=== PATIENT | female | born 1960 | race Caucasian/White ===

== ENCOUNTER 2016-11-25 18:18 | Emergency (ER) | payer OTHER ==
[~2016-11-25] VITALS: Ht 167.6 cm; Wt 79.8 kg
[~2016-11-25 18:18] MED LIST: CIPRO500 MG PO; KEFLEX250 MG PO; MACROBID100 M1 PO; MOTRIN; MOTRIN800 MG PO; NORCO 5/325 MG1 TAB PO; ULTRAM50 MG PO
[2016-11-25 18:55] VITALS: BP 148/96
--- NOTE | 2016-11-25 19:50 | NUR ---
PT RETURN FROM XRAY TO LOBBY
--- NOTE | 2016-11-25 20:00 | NUR ---
PT TAKEN TO BED 4
--- NOTE | 2016-11-25 20:15 | NUR ---
56Y F PRESENTED TO ER C/O OF NON PRODUCTIVE COUGH AND SOB AT TIMES. NO DISTRESS NOTED. V/S TAKEN (SEE V/S). AFEBRILE. HX OF DM, HTN, ASTHMA.
--- NOTE | 2016-11-25 21:46 | NUR ---
Dr. Felix evaluating patient at bedside.
[2016-11-25] MEDS ORDERED: ALBUTEROL 0.083% 2.5 MG/3 ML NEBU INH ONE (21:50)
--- NOTE | 2016-11-25 21:55 | NUR ---
RT AT BEDSIDE FOR TREATMENT
[2016-11-25 22:28] VITALS: BP 120/74
--- NOTE | 2016-11-25 22:28 | NUR ---
Patient discharged with v/s stable. Written and verbal after care instructions given and explained BY DR LARKIN. Patient alert, oriented and verbalized understanding of instructions. Ambulatory with steady gait. All questions addressed prior to discharge. ID band removed. Patient advised to follow up with PMD. Rx of MEDROL, AUGMENTIN AND CODEINE/PHENYL/PROMETHAZINE given. Patient educated on indication of medication including possible reaction and side effects. Opportunity to ask questions provided and answered.
== END 2016-11-25 22:28 | disposition home or self-care (01) ==
LOC: MED 18:18
DX: J20.9 Acute bronchitis, unspecified (principal); J45.909 Unspecified asthma, uncomplicated; E11.9 Type 2 diabetes mellitus without complications; I10 Essential (primary) hypertension
CPT/HCPCS: 71010; 94640; 99283; J7613

== ENCOUNTER 2018-01-02 16:46 | Emergency (ER) | payer OTHER ==
[~2018-01-02] VITALS: Ht 165.1 cm; Wt 76.4 kg
[~2018-01-02 16:46] MED LIST changes: +ACET-8386 PO; +CEPH250C16 PO; -CIPRO500 MG PO; -KEFLEX250 MG PO; -MACROBID100 M1 PO; -MOTRIN; -MOTRIN800 MG PO; +NITR100C7 PO; -NORCO 5/325 MG1 TAB PO; -ULTRAM50 MG PO
[2018-01-02 17:02] VITALS: BP 102/69
--- NOTE | 2018-01-02 17:05 | NUR ---
PT SENT TO LOBBY TO WAIT FOR ED BED/CHAIR.
--- NOTE | 2018-01-02 17:15 | NUR ---
57 F BIB SELF WITH /CO SEVERE BILATERAL EYE ITCHING AND EXCESSIVE SNEEZING X1 DAY AND NOW C/O 8/10 "SHARP" INTERMITTENT HEADACHE. DENIES N/V/D; SKIN IS PINK/WARM/DRY; AOX4 WITH EVEN AND STEADY GAIT;RR ARE EVEN AND UNLABORED VSS; PATIENT POSITIONED FOR COMFORT; ER MD MADE AWARE OF PT STATUS.
[2018-01-02] MEDS ORDERED: methylPREDNISolone SS 125 MG in WATER STERILE 2 ML IM ONE (17:55)
[2018-01-02] MEDS ORDERED: diphenhydrAMINE 50 MG/ML VIAL IM ONE (17:55)
[2018-01-02] MEDS ORDERED: methylPREDNISolone SS 125 MG/2 ML VIAL ONE (18:06)
--- NOTE | 2018-01-02 18:31 | NUR ---
Written and verbal after care instructions given and explained by er md naidu. Patient alert, oriented and verbalized understanding of instructions by er md naidu. Ambulatory with steady gait. All questions addressed prior to discharge by er md naidu. ID band removed by er md naidu. Patient advised to follow up with PMD by er md naidu. Rx of Yenni and Prednisone given by er md naidu. Patient educated on indication of medication including possible reaction and side effects by er md naidu. Opportunity to ask questions provided and answered by er md naidu.
== END 2018-01-02 18:31 | disposition home or self-care (01) ==
LOC: MED 16:46
DX: J30.89 Other allergic rhinitis (principal); E11.9 Type 2 diabetes mellitus without complications; I10 Essential (primary) hypertension; J45.909 Unspecified asthma, uncomplicated
CPT/HCPCS: 96372; 99284; J1200; J2930

== ENCOUNTER 2018-01-11 13:42 | Emergency (ER) | payer OTHER ==
[~2018-01-11] VITALS: Ht 165.1 cm; Wt 82.6 kg
[2018-01-11 13:47] VITALS: BP 107/74
--- NOTE | 2018-01-11 13:47 | NUR ---
Note undone in EDM - 01/11/18 at 1445 by MEDFL 57Y/F c/o LUQ adomen pain with nausea and headache x yesterday. Pt also reports of mid lower back pain. Patient denies any vomitting and diarrhea. ER MADE AWARE OF PT STATUS.
--- NOTE | 2018-01-11 13:55 | NUR ---
PT AMBULATED TO ER BED 03
--- NOTE | 2018-01-11 14:00 | NUR ---
57Y/F c/o LUQ adomen pain with nausea and headache x yesterday. Pt also reports of mid lower back pain. Patient denies any vomitting and diarrhea. ER MD MADE AWARE OF PT STATUS.
[2018-01-11] MEDS ORDERED: ONDANSETRON 4 MG/2 ML VIAL IVP ONE (14:05)
[2018-01-11] MEDS ORDERED: FAMOTIDINE 20 MG/2 ML VIAL IVP ONE (14:05)
[2018-01-11] MEDS ORDERED: NACL 0.9% 1,000 ML IV ONE (14:05)
[2018-01-11] MEDS ORDERED: KETOROLAC 30 MG/ML VIAL IVP ONE (14:05)
--- NOTE | 2018-01-11 14:10 | NUR ---
PATIENT TAKEN TO CT
--- NOTE | 2018-01-11 14:15 | NUR ---
PATIENT BACK FROM CT
[2018-01-11 14:29] LABS: BASOPHILS # (AUTO) 0.1 K/uL (0.00-0.22); EOSINOPHILS # (AUTO) 0.1 K/uL (0-0.4); EOSINOPHILS % (AUTO) 1.3 % (0.0-4.0); HEMATOCRIT 42.2 % (36-48); HEMOGLOBIN 13.6 g/dL (12.0-16.0); LYMPHOCYTES # (AUTO) 3.2 K/uL (2.5-16.5); LYMPHOCYTES % (AUTO) 27.3 % (20.5-51.1); MEAN CORPUSCULAR HEMOGLOBIN 27 pg (27-31); MEAN CORPUSCULAR HGB CONC 32 g/dL (33-37); MEAN CORPUSCULAR VOLUME 82.2 fL (80-94); MONOCYTES # (AUTO) 0.7 K/uL (0.8-1.0); MONOCYTES % (AUTO) 6.1 % (1.7-9.3); NEUTROPHILS # (AUTO) 7.6 K/uL (1.8-7.7); NEUTROPHILS % (AUTO) 64.3 % (42.2-75.2); PLATELET COUNT (AUTO) 307 K/uL (140-450); RED BLOOD CELL COUNT(AUTO) 5.13 MIL/uL (4.20-5.40); WHITE BLOOD COUNT (AUTO) 11.7 K/uL (4.8-10.8)
[2018-01-11 14:36] LABS: APPEARANCE,URINE CLEAR (CLEAR); BILIRUBIN,URINE NEGATIVE (NEGATIVE); BLOOD, URINE TRACE-I (NEGATIVE); COLOR,URINE YELLOW (YELLOW); LEUKOCYTE ESTERASE ,URINE 1+ (NEGATIVE); NITRITE, URINE NEGATIVE (NEGATIVE); UGLUCOSE TRACE (NEGATIVE)
[2018-01-11 14:44] LABS: ANION GAP 13.8 (8-16); CARBON DIOXIDE 26.6 mmol/L (21-32); CREATININE 0.9 mg/dL (0.6-1.3); POTASSIUM 4.4 mmol/L (3.5-5.1)
[2018-01-11 14:49] LABS: ALBUMIN 3.8 g/dL (3.4-5.0); TOTAL BILIRUBIN 0.7 mg/dL (0.0-1.0)
[2018-01-11 15:02] LABS: RBC,URINE 0-5 (RARE) /HPF (0-5); WBC,URINE 6-15 (FEW) /HPF (0-5)
[2018-01-11 15:07] LABS: PROTHROMBIN TIME 9.5 secs (10.8-13.4)
--- NOTE | 2018-01-11 15:42 | NUR ---
Patient discharged with v/s stable. Written and verbal after care instructions given and explained. Patient alert, oriented and verbalized understanding of instructions. Ambulatory with steady gait. All questions addressed prior to discharge. ID band removed. Patient advised to follow up with PMD. Rx of Bentyl and Zofran given. Patient educated on indication of medication including possible reaction and side effects. Opportunity to ask questions provided and answered.
[2018-01-11 15:43] VITALS: BP 107/74
--- NOTE | 2018-01-25 11:17 | NUR ---
LATE SUBMISSION SODIUM CHLORIDE START TIME 1442 END TIME 1515.
== END 2018-01-11 15:42 | disposition home or self-care (01) ==
LOC: MED 13:42
DX: R10.33 Periumbilical pain (principal); R11.2 Nausea with vomiting, unspecified; R51 Headache; J45.909 Unspecified asthma, uncomplicated; E11.9 Type 2 diabetes mellitus without complications; I10 Essential (primary) hypertension; Z87.442 Personal history of urinary calculi; Z79.899 Other long term (current) drug therapy
CPT/HCPCS: 36415; 74176; 80053; 81001; 81025; 82150; 82948; 83690; 84484; 85025; 85610; 85730; 87086; 93005; 96361; 96374; 96375; 99285; J1885; J2405; J3490; J7030

== ENCOUNTER 2018-03-01 11:21 | Emergency (ER) | payer OTHER ==
[~2018-03-01] VITALS: Ht 167.6 cm; Wt 69.4 kg
[2018-03-01 11:31] VITALS: BP 145/87
--- NOTE | 2018-03-01 11:45 | NUR ---
57 YO M BIB SELF W/ C/O LEFT FLANK PAIN/MID ABDOMEN REGION X 1 DAY THAT IS SHARP 8/10, RADIATES ENTIRE ABD. DENIES DYSURIA, FEVER/CHILLS/VOMITING. REPORTS MILD NAUSEA. PT AAOX4. GCS 15. CMS INTACT. RR EVEN AND UNLABORED. LUNGS BIALTERALLY CLEAR. ABD SOFT, NON-TENDER. ER SECHRIST NOTIFIED. PT NEEDS MET. SAFETY PRECAUTIONS IN PLACE. WILL CONTINUE TO MONITOR.
[2018-03-01] MEDS ORDERED: HYDROcodone/APAP 5/325 MG 1 TAB TAB PO ONE (12:05)
--- NOTE | 2018-03-01 12:29 | NUR ---
PATIENT MEDICATED FOR ABD. PAIN
[2018-03-01 12:42] LABS: BASOPHILS # (AUTO) 0.1 K/uL (0.00-0.22); BASOPHILS % (AUTO) 0.9 % (0.0-2.0); EOSINOPHILS # (AUTO) 0.5 K/uL (0-0.4); EOSINOPHILS % (AUTO) 6.8 % (0.0-4.0); HEMOGLOBIN 12.9 g/dL (12.0-16.0); LYMPHOCYTES # (AUTO) 2.9 K/uL (2.5-16.5); LYMPHOCYTES % (AUTO) 40.6 % (20.5-51.1); MEAN CORPUSCULAR HEMOGLOBIN 27 pg (27-31); MEAN CORPUSCULAR HGB CONC 33 g/dL (33-37); MEAN CORPUSCULAR VOLUME 80.9 fL (80-94); MONOCYTES # (AUTO) 0.4 K/uL (0.8-1.0); MONOCYTES % (AUTO) 5.6 % (1.7-9.3); NEUTROPHILS # (AUTO) 3.2 K/uL (1.8-7.7); NEUTROPHILS % (AUTO) 46.1 % (42.2-75.2); PLATELET COUNT (AUTO) 299 K/uL (140-450); RED BLOOD CELL COUNT(AUTO) 4.81 MIL/uL (4.20-5.40); RED CELL DISTRIBUTION WIDTH 13.4 % (11.6-13.7)
[2018-03-01 12:57] LABS: ANION GAP 13.2 (8-16); CREATININE 0.8 mg/dL (0.6-1.3); POTASSIUM 4.2 mmol/L (3.5-5.1)
--- NOTE | 2018-03-01 13:00 | NUR ---
pt resting on [facility] at this time. vss. will continue to monitor.
[2018-03-01 13:07] LABS: ALBUMIN 3.8 g/dL (3.4-5.0); TOTAL BILIRUBIN 0.6 mg/dL (0.0-1.0)
--- NOTE | 2018-03-01 14:00 | NUR ---
pt eating a snack at this time. vss. will continue to monitor.
[2018-03-01 14:01] LABS: APPEARANCE,URINE CLEAR (CLEAR); BILIRUBIN,URINE NEGATIVE (NEGATIVE); BLOOD, URINE 3+ (NEGATIVE); COLOR,URINE YELLOW (YELLOW); LEUKOCYTE ESTERASE ,URINE TRACE (NEGATIVE); NITRITE, URINE NEGATIVE (NEGATIVE); UGLUCOSE NEGATIVE (NEGATIVE)
[2018-03-01 14:09] LABS: RBC,URINE 20-50 /HPF (0-5)
[2018-03-01 14:46] VITALS: BP 138/66
--- NOTE | 2018-03-01 14:47 | NUR ---
Patient discharged with v/s stable. Written and verbal after care instructions given and explained. Patient alert, oriented and verbalized understanding of instructions. Ambulatory with steady gait. All questions addressed prior to discharge. ID band removed. Patient advised to follow up with PMD. Rx of Keflex, Roselle, Flomax, and Zofran ODT given. Patient educated on indication of medication including possible reaction and side effects. Opportunity to ask questions provided and answered.
== END 2018-03-01 14:47 | disposition home or self-care (01) ==
LOC: MED 11:21
DX: N20.0 Calculus of kidney (principal); N39.0 Urinary tract infection, site not specified; J45.909 Unspecified asthma, uncomplicated; E11.9 Type 2 diabetes mellitus without complications; I10 Essential (primary) hypertension
CPT/HCPCS: 36415; 80053; 81001; 81025; 83690; 85025; 87086; 99284

== ENCOUNTER 2018-03-28 21:04 | Emergency (ER) | payer OTHER ==
[~2018-03-28] VITALS: Ht 167.6 cm; Wt 72.6 kg
[2018-03-28 21:08] VITALS: BP 144/80
[2018-03-28] MEDS ORDERED: HYDROcodone/APAP 5/325 MG 1 TAB TAB PO ONE (21:50)
[2018-03-28] MEDS ORDERED: KETOROLAC 30 MG/ML VIAL IM ONE (21:50)
[2018-03-28 22:16] LABS: APPEARANCE,URINE CLOUDY (CLEAR); BILIRUBIN,URINE NEGATIVE (NEGATIVE); BLOOD, URINE 3+ (NEGATIVE); COLOR,URINE YELLOW (YELLOW); LEUKOCYTE ESTERASE ,URINE 1+ (NEGATIVE); NITRITE, URINE NEGATIVE (NEGATIVE); UGLUCOSE NEGATIVE (NEGATIVE)
[2018-03-28 22:28] LABS: RBC,URINE TOO NUMEROUS TO COUN /HPF (0-5)
[2018-03-28 23:15] VITALS: BP 132/77
== END 2018-03-28 23:15 | disposition home or self-care (01) ==
LOC: MED 21:04
DX: N39.0 Urinary tract infection, site not specified (principal); J45.909 Unspecified asthma, uncomplicated; I10 Essential (primary) hypertension; E11.9 Type 2 diabetes mellitus without complications; Z79.2 Long term (current) use of antibiotics
CPT/HCPCS: 81001; 81025; 87086; 96372; 99284; J1885

== ENCOUNTER 2018-05-12 12:35 | Emergency (ER) | payer OTHER ==
[~2018-05-12] VITALS: Ht 165.1 cm; Wt 75.3 kg
[2018-05-12 12:40] VITALS: BP 171/92
--- NOTE | 2018-05-12 13:07 | NUR ---
pt ambulated to ed bed 1 by natividad garcia
--- NOTE | 2018-05-12 13:10 | NUR ---
pt c/o RIGHT FLANK PAIN AND LOWER BACK PAIN WITH N/V X 5 DAYS. PTC/O BURNING WHILE URINATION AND INCREASED FREQUENCY HX--DM, ASTHMA RX--ASA 81MG , METFORMIN 1GM BID, GLIPIZIDE 10MG BID,
[2018-05-12 14:19] VITALS: BP 159/70
== END 2018-05-12 14:19 | disposition home or self-care (01) ==
LOC: MED 12:35
DX: R10.13 Epigastric pain (principal); R30.9 Painful micturition, unspecified; R11.0 Nausea; J45.909 Unspecified asthma, uncomplicated; E11.9 Type 2 diabetes mellitus without complications; I10 Essential (primary) hypertension; Z88.8 Allergy status to other drugs, medicaments and biological substances
CPT/HCPCS: 81002; 81025; 82948; 99283

== ENCOUNTER 2018-05-18 08:40 | Emergency (ER) | payer OTHER ==
[~2018-05-18] VITALS: Ht 165.1 cm; Wt 72.6 kg
[2018-05-18 08:44] VITALS: BP 160/101
--- NOTE | 2018-05-18 09:02 | NUR ---
PATIENT PRESENTS TO ED WITH THE CHIEF C/O HEADACHE. PT STATES HEADACHE STARTED SINCE THIS MORNING. PER PT SHE WAS HERE LAST WEEK WITH THE SAME REASON. DENIES DIARRHEA AT THIS TIME. HAD DIARRHEA 2 DAYS AGO. SKIN IS PINK/WARM/DRY; AAOX4 WITH EVEN AND STEADY GAIT; HR EVEN AND REGULAR; PT DENIES ANY FEVER, CP, SOB, OR COUGH AT THIS TIME; PATIENT STATES HEADACHE OF 10/10 AT THIS TIME. PT STATED SHE IS PHOTOPHOBIC. TURNED LIGHT OFF. PATIENT POSITIONED FOR COMFORT; HOB ELEVATED; BEDRAILS UP X2; BED DOWN. VSS. ER MD MADE AWARE OF PT STATUS.
[2018-05-18] MEDS ORDERED: PROCHLORPERAZINE 10 MG/2 ML VIAL IVP ONE (09:10)
[2018-05-18] MEDS ORDERED: KETOROLAC 30 MG/ML VIAL IVP ONE (09:10)
[2018-05-18] MEDS ORDERED: NACL 0.9% 1,000 ML IV ONE (09:10)
--- NOTE | 2018-05-18 10:19 | NUR ---
PT SLEEPING IN BED, AROUSABLE. DENIES NAUSEA, VOMITING AND PAIN AT THIS TIME. WILL CONTINUE TO MONITOR.
[2018-05-18 10:23] LABS: ANION GAP 12.3 (8-16); CARBON DIOXIDE 26.1 mmol/L (21-32); POTASSIUM 3.4 mmol/L (3.5-5.1)
--- NOTE | 2018-05-18 10:54 | NUR ---
Patient discharged with v/s stable. Written and verbal after care instructions given and explained. Patient alert, oriented and verbalized understanding of instructions. Ambulatory with steady gait. All questions addressed prior to discharge. ID band and IV cannula removed. Patient advised to follow up with PMD. Rx of Compazine and Naprosy given. Patient educated on indication of medication including possible reaction and side effects. Opportunity to ask questions provided and answered.
[2018-05-18 11:08] VITALS: BP 121/77
== END 2018-05-18 10:54 | disposition home or self-care (01) ==
LOC: MED 08:40
DX: G43.909 Migraine, unspecified, not intractable, without status migrainosus (principal); J45.909 Unspecified asthma, uncomplicated; E11.9 Type 2 diabetes mellitus without complications; I10 Essential (primary) hypertension; Z79.899 Other long term (current) drug therapy
CPT/HCPCS: 36415; 80048; 82948; 96361; 96374; 96375; 99284; J0780; J1885

== ENCOUNTER 2019-02-11 09:09 | Emergency (ER) | payer OTHER ==
[~2019-02-11] VITALS: Ht 165.1 cm; Wt 74.4 kg
[2019-02-11 09:16] VITALS: BP 147/100
--- NOTE | 2019-02-11 09:28 | NUR ---
58/F BIB SELF C/O COUGH X3 DAYS. PT REPORTS PRODUCTIVE COUGH WITH GREEN SPUTUM. PT REPORTS HEADACHE AND SORE THROAT. PT REPORTS NAUSEA FROM PHLEM STUCK IN THROAT. MEDHX:DM, ASTHMA. PATIENT POSITIONED FOR COMFORT; HOB ELEVATED; BEDRAILS UP X1; BED DOWN. ER MD MADE AWARE OF PT STATUS.
--- NOTE | 2019-02-11 09:33 | NUR ---
Patient being evaluated by DR SORIANO at bedside.
[2019-02-11 10:00] VITALS: BP 124/86
--- NOTE | 2019-02-11 10:00 | NUR ---
Patient discharged with v/s stable. Written and verbal after care instructions given and explained. Patient alert, oriented and verbalized understanding of instructions. Ambulatory with steady gait. All questions addressed prior to discharge. ID band removed. Patient advised to follow up with PMD. Rx of AZITHROMYCIN & PROMETHAZINE given. Patient educated on indication of medication including possible reaction and side effects. Opportunity to ask questions provided and answered.
== END 2019-02-11 10:00 | disposition home or self-care (01) ==
LOC: MED 09:09
DX: J02.9 Acute pharyngitis, unspecified (principal); R03.0 Elevated blood-pressure reading, without diagnosis of hypertension; J45.909 Unspecified asthma, uncomplicated; E11.9 Type 2 diabetes mellitus without complications; Z79.899 Other long term (current) drug therapy
CPT/HCPCS: 81002; 99283

== ENCOUNTER 2019-04-12 09:52 | Emergency (ER) | payer OTHER ==
[~2019-04-12] VITALS: Ht 167.6 cm; Wt 75.3 kg
--- NOTE | 2019-04-12 10:05 | NUR ---
C/O HEADACHE 6/10 AND THROBBING ACCOMPANIED BY DIZZINESS X 2 DAYS. PT REPORTS SHE TAKES METFORMIN AT HOME BUT HAS NOT TAKEN IT IN 3 DAYS BECAUSE SHE LEFT IT IN HER BROTHERS CAR. FSBS AT THIS TIME 220. PT IS SPEAKING CLEARLY IN FULL & COMPLETE SENTENCES, SKIN IS DRY/WARM. PT BLE/BUE STRENGTH EQUAL. DENIES N/V/D/FEVER. PT PLACED IN GOWN, BED IN LOW POSITION, SIDE RAIL UP X1. ADVISED PT TO USE CALL LIGHT FOR ASSISTANCE IN GETTING UP IF NEEDED.
[2019-04-12 10:06] VITALS: BP 122/87
--- NOTE | 2019-04-12 10:40 | NUR ---
DR. SORIANO AT BEDSIDE
[2019-04-12] MEDS ORDERED: NACL 0.9% 500 ML IV ONE (10:42)
[2019-04-12] MEDS ORDERED: KETOROLAC 30 MG/ML VIAL IVP ONE (10:45)
[2019-04-12] MEDS ORDERED: ONDANSETRON 4 MG/2 ML VIAL IVP ONE (10:45)
[2019-04-12 11:22] LABS: BASOPHILS % (AUTO) 0.4 % (0.0-2.0); EOSINOPHILS # (AUTO) 0.1 K/uL (0-0.4); EOSINOPHILS % (AUTO) 1.8 % (0.0-4.0); HEMATOCRIT 39.7 % (36-48); HEMOGLOBIN 13.1 g/dL (12.0-16.0); LYMPHOCYTES # (AUTO) 1.7 K/uL (2.5-16.5); MEAN CORPUSCULAR HEMOGLOBIN 27 pg (27-31); MEAN CORPUSCULAR HGB CONC 33 g/dL (33-37); MEAN CORPUSCULAR VOLUME 82.5 fL (80-94); MONOCYTES # (AUTO) 0.5 K/uL (0.8-1.0); MONOCYTES % (AUTO) 6.3 % (1.7-9.3); NEUTROPHILS % (AUTO) 68.5 % (42.2-75.2); PLATELET COUNT (AUTO) 251 K/uL (140-450); RED BLOOD CELL COUNT(AUTO) 4.81 MIL/uL (4.20-5.40); WHITE BLOOD COUNT (AUTO) 7.3 K/uL (4.8-10.8)
--- NOTE | 2019-04-12 11:40 | NUR ---
PT RESTING IN BED, NO NEW NEEDS AT THIS TIME
[2019-04-12 11:43] LABS: ALBUMIN 3.5 g/dL (3.4-5.0); ANION GAP 14.5 (8-16); CARBON DIOXIDE 26.5 mmol/L (21-32); CREATININE 0.9 mg/dL (0.6-1.3); TOTAL BILIRUBIN 0.6 mg/dL (0.0-1.0)
[2019-04-12 12:20] VITALS: BP 119/89
--- NOTE | 2019-04-12 12:28 | NUR ---
Patient discharged with v/s stable. Written and verbal after care instructions given and explained. Patient alert, oriented and verbalized understanding of instructions. Ambulatory with steady gait. All questions addressed prior to discharge. ID band removed. Patient advised to follow up with PMD. Rx of ZOFRAN, MOTRIN given. Patient educated on indication of medication including possible reaction and side effects. Opportunity to ask questions provided and answered.
--- NOTE | 2019-04-18 13:49 | NUR ---
Late entry. Confirmed with RN that 0.9 NS IV at 100ml/hr ended at 1220.
== END 2019-04-12 12:28 | disposition home or self-care (01) ==
LOC: MED 09:52
DX: R51 Headache (principal); R42 Dizziness and giddiness; R11.0 Nausea; J45.909 Unspecified asthma, uncomplicated; E11.9 Type 2 diabetes mellitus without complications; I10 Essential (primary) hypertension; Z79.899 Other long term (current) drug therapy
CPT/HCPCS: 36415; 70450; 80053; 81002; 83690; 85025; 96361; 96374; 96375; 99284; J1885; J2405; J7030

== ENCOUNTER 2019-05-22 15:12 | Emergency (ER) | payer OTHER ==
[~2019-05-22] VITALS: Ht 163.8 cm; Wt 74.9 kg
[2019-05-22 15:15] VITALS: BP 126/80
--- NOTE | 2019-05-22 15:25 | NUR ---
PT AMBULATED TO BED 5 WITH SLOW STEADY GAIT.
--- NOTE | 2019-05-22 15:43 | NUR ---
BIB SELF. C/O GENERALIZED WEAKNESS, DIZZINESS, RIGHT FLANK PAIN, INCREASED URINATION X 1 DAY. PT DENIES FEVER, N/V/D, DYSURIA, SOB. ACCU CHECK 266 IN TRIAGE. PATIENT STATES SHE IS TAKING HER MEDICATIONS ACCORDINGLY. NEURO INTACT. AA0X4. VSS. BED IS DOWN, LOCKED, BEDRAIL X 1, ERMD TO SEE PT. PMH: DM, ASTHMA, HTN, HLD MED RX:ALBUTEROL INHALER, METFORMIN, ASPIRIN ALLERGY:DENIES
--- NOTE | 2019-05-22 16:02 | NUR ---
DR LARKIN AT BEDSIDE
[2019-05-22] MEDS ORDERED: NACL 0.9% 1,000 ML IV SCH (16:18)
[2019-05-22] MEDS ORDERED: KETOROLAC 30 MG/ML VIAL IVP ONE (16:20)
--- NOTE | 2019-05-22 16:36 | NUR ---
blood collected at iv start and handed to Felipa laborer general
[2019-05-22 16:39] LABS: BASOPHILS % (AUTO) 0.4 % (0.0-2.0); EOSINOPHILS % (AUTO) 0.4 % (0.0-4.0); HEMATOCRIT 40.7 % (36-48); HEMOGLOBIN 13.5 g/dL (12.0-16.0); LYMPHOCYTES # (AUTO) 2.1 K/uL (2.5-16.5); LYMPHOCYTES % (AUTO) 24.1 % (20.5-51.1); MEAN CORPUSCULAR HEMOGLOBIN 27 pg (27-31); MEAN CORPUSCULAR HGB CONC 33 g/dL (33-37); MEAN CORPUSCULAR VOLUME 81.9 fL (80-94); MONOCYTES # (AUTO) 0.8 K/uL (0.8-1.0); MONOCYTES % (AUTO) 9.2 % (1.7-9.3); NEUTROPHILS # (AUTO) 5.7 K/uL (1.8-7.7); NEUTROPHILS % (AUTO) 65.9 % (42.2-75.2); PLATELET COUNT (AUTO) 259 K/uL (140-450); RED BLOOD CELL COUNT(AUTO) 4.97 MIL/uL (4.20-5.40); RED CELL DISTRIBUTION WIDTH 13.3 % (11.6-13.7); WHITE BLOOD COUNT (AUTO) 8.6 K/uL (4.8-10.8)
[2019-05-22 16:43] LABS: APPEARANCE,URINE CLEAR (CLEAR); BILIRUBIN,URINE NEGATIVE (NEGATIVE); BLOOD, URINE TRACE-I (NEGATIVE); COLOR,URINE YELLOW (YELLOW); LEUKOCYTE ESTERASE ,URINE TRACE (NEGATIVE); NITRITE, URINE NEGATIVE (NEGATIVE); UGLUCOSE 3+ (NEGATIVE)
[2019-05-22 16:54] LABS: RBC,URINE 0-5 /HPF (0-5); WBC,URINE 0-5 /HPF (0-5)
[2019-05-22 16:54] LABS: ALBUMIN 3.3 g/dL (3.4-5.0); ANION GAP 13.4 (8-16); CARBON DIOXIDE 28.9 mmol/L (21-32); CREATININE 0.8 mg/dL (0.6-1.3); POTASSIUM 4.3 mmol/L (3.5-5.1); TOTAL BILIRUBIN 0.6 mg/dL (0.0-1.0)
--- NOTE | 2019-05-22 16:58 | NUR ---
VITAL SIGNS TAKEN AT THIS TIME
--- NOTE | 2019-05-22 17:01 | NUR ---
PT BEING TAKING TO CT VIA ANGELES
[2019-05-22] MEDS ORDERED: INSULIN REGULAR, HUMAN 100 UNIT/ML VIAL IV ONE (17:05)
--- NOTE | 2019-05-22 17:47 | NUR ---
ACCU CHECK 134
--- NOTE | 2019-05-22 18:00 | NUR ---
VSS AT THIS TIME. AA0X4
[2019-05-22 19:02] VITALS: BP 117/75
--- NOTE | 2019-05-22 19:02 | NUR ---
Patient discharged with v/s stable. Written and verbal after care instructions given and explained BY DR LARKIN. IV REMOVED BY KELLI AGUILA. Patient alert, oriented and Ambulatory with steady gait. ID band removed. Rx of GLIPIZIDE given.
--- NOTE | 2019-05-25 08:53 | NUR ---
Late entry. Confirmed with RN that 1000ml 0.9 NS IV completed at 1730
== END 2019-05-22 19:02 | disposition home or self-care (01) ==
LOC: MED 15:12
DX: E11.65 Type 2 diabetes mellitus with hyperglycemia (principal); J45.909 Unspecified asthma, uncomplicated; I10 Essential (primary) hypertension; Z79.899 Other long term (current) drug therapy
CPT/HCPCS: 36415; 74176; 80053; 81001; 82948; 85025; 96361; 96374; 96375; 99284; J1815; J1885; J7030

== ENCOUNTER 2019-09-16 08:02 | Emergency (ER) | payer OTHER ==
[~2019-09-16] VITALS: Ht 167.6 cm; Wt 72.6 kg
[2019-09-16 08:04] VITALS: BP 109/79
--- NOTE | 2019-09-16 08:12 | NUR ---
URINE CUP HANDED TO PT FOR SAMPLE
--- NOTE | 2019-09-16 08:17 | NUR ---
58 Y/O F C/C FEVER/THROAT PAIN X2 DAYS. PER PT TOOK IBUPROFEN AT HOME WITH SLIGHT RELIEF. PT NKA. HX DM, ASTHMA. RX METFORMIN, ALBUTEROL, ASA. NO N/V/D. SIDE RAIL X1. FAMILY AT BEDSIDE.
--- NOTE | 2019-09-16 08:32 | NUR ---
Dr. Trujillo is evaluating the patient at bedside.
[2019-09-16 08:52] VITALS: BP 109/79
--- NOTE | 2019-09-16 08:52 | NUR ---
Patient discharged with v/s stable. Written and verbal after care instructions given and explained. Patient alert, oriented and verbalized understanding of instructions. Ambulatory with steady gait. All questions addressed prior to discharge. ID band removed. Patient advised to follow up with PMD. Rx of TAMIFLU,ALBUTEROL,IBUPROFEN given. Patient educated on indication of medication including possible reaction and side effects. Opportunity to ask questions provided and answered.
== END 2019-09-16 08:52 | disposition home or self-care (01) ==
LOC: MED 08:02
DX: B34.9 Viral infection, unspecified (principal); J11.1 Influenza due to unidentified influenza virus with other respiratory manifestations; J45.909 Unspecified asthma, uncomplicated; E11.9 Type 2 diabetes mellitus without complications; I10 Essential (primary) hypertension; Z79.899 Other long term (current) drug therapy
CPT/HCPCS: 99283

== ENCOUNTER 2019-10-15 07:57 | Emergency (ER) | payer OTHER ==
[~2019-10-15] VITALS: Ht 167.6 cm; Wt 72.6 kg
[2019-10-15 08:05] VITALS: BP 133/82
--- NOTE | 2019-10-15 08:08 | NUR ---
PT ambulated to bed 02.
--- NOTE | 2019-10-15 08:12 | NUR ---
58 Y/O F C/C COUGH/CONGESTION/SORE THROAT X 2 MONTHS. PER PT BELIEVES ITS SEASONAL ALLERGIES. PT NOT TAKE FLU SHOT; FAMILY SICK AT HOME. NKA. NO HX. NO RX. NAUSEA. NO D/V. SIDE RAIL X1. CLEAR LUNG SOUNDS.
--- NOTE | 2019-10-15 08:14 | NUR ---
C/O INTERMITTENT PERSISTANT COUGH, CONGESTION, SINUS PAIN, HEADACHES X "MONTHS" NAUSEA AND DIZZINESS YESTERDAY FULL CLEAR SPEECH, NO FACIAL ASYMMETRY, AMBULATORY WITH STEADY GAIT, EQUAL MANAGER STORAGE TO BUE. DENIES RECENT INJURY
[2019-10-15 08:34] VITALS: BP 123/77
--- NOTE | 2019-10-15 08:35 | NUR ---
Patient discharged with v/s stable. Written and verbal after care instructions given and explained. Patient alert, oriented and verbalized understanding of instructions. Ambulatory with steady gait. All questions addressed prior to discharge. ID band removed. Patient advised to follow up with PMD. Rx of IBUPROFEN/TYLENOL/PEPCID/CETIRIZINE given. Patient educated on indication of medication including possible reaction and side effects. Opportunity to ask questions provided and answered.
== END 2019-10-15 08:35 | disposition home or self-care (01) ==
LOC: MED 07:57
DX: J06.9 Acute upper respiratory infection, unspecified (principal); J45.909 Unspecified asthma, uncomplicated; Z98.890 Other specified postprocedural states
CPT/HCPCS: 99283

== ENCOUNTER 2019-11-10 17:48 | Emergency (ER) | payer OTHER ==
[~2019-11-10] VITALS: Ht 165.1 cm; Wt 72.1 kg
[2019-11-10 17:59] VITALS: BP 109/80
--- NOTE | 2019-11-10 18:02 | NUR ---
FLU SWAB COLLECTED AND LEFT AT BEDSIDE
--- NOTE | 2019-11-10 18:04 | NUR ---
PT TO ER BED 3
--- NOTE | 2019-11-10 18:09 | NUR ---
PT C/O PRODUCTIVE COUGH W/ WHITE PHLEGM, SUBJECTIVE FEVER, MILD EPIGASTRIC PAIN, WATERY DIARRHEA, AND FRONTAL GAMA SINCE YESTERDAY. DENIES SOB, OR CHEST PAIN AT THIS TIME. PATIENT STATES PAIN OF 810 AT THIS TIME; VSS; PATIENT POSITIONED FOR COMFORT; HOB ELEVATED; BEDRAILS UP X1; BED DOWN. ER MADE AWARE OF PT STATUS. Addendum: 11/10/19 at 1827 by MED LUNGS ARE CLEAR TO AUSCULTATION.
[2019-11-10 18:58] VITALS: BP 105/78
--- NOTE | 2019-11-10 18:58 | NUR ---
Patient discharged with v/s stable. Written and verbal after care instructions given and explained. Patient alert, oriented and verbalized understanding of instructions. Ambulatory with steady gait. All questions addressed prior to discharge. ID band removed. Patient advised to follow up with PMD. Rx of PROMETHAZINE, MACORBOID, TYLENOL, MOTRIN, TAMIFLU given. Patient educated on indication of medication including possible reaction and side effects. Opportunity to ask questions provided and answered.
== END 2019-11-10 18:58 | disposition home or self-care (01) ==
LOC: MED 17:48
DX: J10.1 Influenza due to other identified influenza virus with other respiratory manifestations (principal); N39.0 Urinary tract infection, site not specified; J45.909 Unspecified asthma, uncomplicated; E11.9 Type 2 diabetes mellitus without complications; I10 Essential (primary) hypertension; Z79.899 Other long term (current) drug therapy
CPT/HCPCS: 81002; 82948; 87804; 99283

== ENCOUNTER 2020-04-03 08:50 | Emergency (ER) | payer OTHER ==
[~2020-04-03] VITALS: Ht 165.1 cm; Wt 72.6 kg
[2020-04-03 08:58] VITALS: BP 119/87
[2020-04-03] MEDS ORDERED: KETOROLAC 30 MG/ML VIAL IM/IVP ONE (09:15)
[2020-04-03] MEDS ORDERED: NACL 0.9% 1,000 ML IV ONE (09:15)
[2020-04-03] MEDS ORDERED: ONDANSETRON 4 MG/2 ML VIAL IVP ONE (09:15)
[2020-04-03 09:31] LABS: BASOPHILS # (AUTO) 0.1 K/uL (0.00-0.22); BASOPHILS % (AUTO) 1.2 % (0.0-2.0); EOSINOPHILS % (AUTO) 0.2 % (0.0-4.0); HEMATOCRIT 45.1 % (36-48); HEMOGLOBIN 14.7 g/dL (12.0-16.0); LYMPHOCYTES # (AUTO) 1.7 K/uL (2.5-16.5); LYMPHOCYTES % (AUTO) 34.8 % (20.5-51.1); MEAN CORPUSCULAR HEMOGLOBIN 27 pg (27-31); MEAN CORPUSCULAR HGB CONC 33 g/dL (33-37); MEAN CORPUSCULAR VOLUME 83.4 fL (80-94); MONOCYTES # (AUTO) 0.5 K/uL (0.8-1.0); MONOCYTES % (AUTO) 10.5 % (1.7-9.3); NEUTROPHILS # (AUTO) 2.7 K/uL (1.8-7.7); NEUTROPHILS % (AUTO) 53.3 % (42.2-75.2); PLATELET COUNT (AUTO) 246 K/uL (140-450); RED CELL DISTRIBUTION WIDTH 13.1 % (11.6-13.7)
[2020-04-03 09:42] LABS: APPEARANCE,URINE CLEAR (CLEAR); BILIRUBIN,URINE NEGATIVE (NEGATIVE); BLOOD, URINE NEGATIVE (NEGATIVE); COLOR,URINE YELLOW (YELLOW); LEUKOCYTE ESTERASE ,URINE NEGATIVE (NEGATIVE); NITRITE, URINE NEGATIVE (NEGATIVE); UGLUCOSE 3+ (NEGATIVE)
[2020-04-03 09:46] LABS: ALBUMIN 3.8 g/dL (3.4-5.0); ANION GAP 17.7 (8-16); CREATININE 0.9 mg/dL (0.6-1.3); POTASSIUM 4.7 mmol/L (3.5-5.1); TOTAL BILIRUBIN 0.5 mg/dL (0.0-1.0)
[2020-04-03 10:03] LABS: RBC,URINE 0-5 /HPF (0-5); WBC,URINE 0-5 /HPF (0-5)
[2020-04-03 10:43] VITALS: BP 119/87
== END 2020-04-03 10:42 | disposition home or self-care (01) ==
LOC: MED 08:50
DX: E11.65 Type 2 diabetes mellitus with hyperglycemia (principal); E86.0 Dehydration; M54.5 Low back pain; J45.909 Unspecified asthma, uncomplicated; I10 Essential (primary) hypertension; Z79.899 Other long term (current) drug therapy
CPT/HCPCS: 36415; 80053; 81001; 85025; 96361; 96374; 96375; 99284; J1885; J2405; J7030

== ENCOUNTER 2020-04-12 19:16 | Emergency (ER) | payer OTHER ==
[~2020-04-12] VITALS: Ht 167.6 cm; Wt 59.0 kg
[2020-04-12 19:31] VITALS: BP 114/76
--- NOTE | 2020-04-12 19:34 | NUR ---
TRIAGED AND WAITING IN TENT
--- NOTE | 2020-04-12 19:58 | NUR ---
covid swab collected and sent to lab.
--- NOTE | 2020-04-12 20:01 | NUR ---
no nursing intervention ordered by HAILEY Anderson.
--- NOTE | 2020-04-12 20:01 | NUR ---
Patient discharged with v/s stable. Written and verbal after care instructions given and explained. Patient verbalized understanding. Ambulatory with steady gait. All questions addressed prior to discharge. Advised to follow up with PMD. advised to self-quarantine for 14 days or until asymptomatic.
--- NOTE | 2020-04-13 20:18 | NUR ---
LATE ENTRY--POSITIVE COVID RESULT RECEIVED. COPY OF REPORT GIVEN TO INFECTION CONTROL OFFICE.
== END 2020-04-12 20:00 | disposition home or self-care (01) ==
LOC: MED 19:16
DX: U07.1 COVID-19 (principal); B34.9 Viral infection, unspecified; E11.9 Type 2 diabetes mellitus without complications; I10 Essential (primary) hypertension; J45.909 Unspecified asthma, uncomplicated; Z79.899 Other long term (current) drug therapy
CPT/HCPCS: 99283; U0003

== ENCOUNTER 2020-04-19 15:54 | Emergency (ER) | payer OTHER, SELFPAY ==
[~2020-04-19] VITALS: Ht 160 cm; Wt 65.8 kg
[2020-04-19 16:03] VITALS: BP 150/70
--- NOTE | 2020-04-19 16:03 | NUR ---
PER PT BACK DISCOMFORT X 2 DAYS. ON ASSESSMENT LUMP NOTED ON THE LOWER MID BACK, PER PT PAIN WHEN TOUCHING LUMP: 5/10 PAIN, SHARP SENSATION, TOUCHING EXACERBATES, NON RADIATING. VSS,EUPNIC,AMBULATORY,A/OX4. PT POSITIVE COVID ON 04/15/20. NO COVID SYMPTOMS PRESENT. DENIES NVD. NKA HX DM,ASTHMA RX METFORMIN,ALBUTEROL
--- NOTE | 2020-04-19 16:15 | NUR ---
PA IN TENT
[2020-04-19 16:46] VITALS: BP 142/68
== END 2020-04-19 16:47 | disposition home or self-care (01) ==
LOC: MED 15:54
DX: L72.9 Follicular cyst of the skin and subcutaneous tissue, unspecified (principal); J45.909 Unspecified asthma, uncomplicated; E11.9 Type 2 diabetes mellitus without complications; I10 Essential (primary) hypertension; Z79.899 Other long term (current) drug therapy
CPT/HCPCS: 99282

== ENCOUNTER 2020-04-25 16:33 | Emergency (ER) | payer OTHER, SELFPAY ==
[~2020-04-25] VITALS: Ht 167.6 cm; Wt 59.9 kg
[2020-04-25 17:01] VITALS: BP 108/67
--- NOTE | 2020-04-25 17:56 | NUR ---
Patient discharged with v/s stable by Inés GARCIA. Written and verbal after care instructions given and explained. Patient verbalized understanding. Ambulatory with steady gait. All questions addressed prior to discharge. Advised to follow up with PMD.
== END 2020-04-25 17:56 | disposition home or self-care (01) ==
LOC: MED 16:33
DX: L72.0 Epidermal cyst (principal); J45.909 Unspecified asthma, uncomplicated; E11.9 Type 2 diabetes mellitus without complications; I10 Essential (primary) hypertension; Z79.899 Other long term (current) drug therapy
CPT/HCPCS: 99281

== ENCOUNTER 2020-05-14 18:11 | Emergency (ER) | payer OTHER, SELFPAY ==
[~2020-05-14] VITALS: Ht 162.6 cm; Wt 69.9 kg
[2020-05-14 18:16] VITALS: BP 136/84
--- NOTE | 2020-05-14 18:20 | NUR ---
PT WAS REFERRED BY HER PCP TODAY FOR HYPERGLYCEMIA. BS 345 UPON TRIAGE. DENIES N/V/D, ABDOMINAL PAIN, DIZZINESS, THIRSTY SENSATION, BUT REPORTS MILD FATIGUE TODAY. PT WAS POSITIVE FOR COVID-19 TWO MONS AGO AND TESTED NEGATIVE ON 05/01/2020. DENIES FEVER, COUGH, CP, SOB, SORE THROAT, OR SICK CONTACTS SINCE THEN. SKIN IS PINK/WARM/DRY; AAOX4 WITH EVEN AND STEADY GAIT; HR EVEN AND REGULAR; PATIENT STATES PAIN OF 0/10 AT THIS TIME; VSS; PATIENT POSITIONED FOR COMFORT; HOB ELEVATED; BEDRAILS UP X1; BED DOWN. ER MD MADE AWARE OF PT STATUS.
--- NOTE | 2020-05-14 18:21 | NUR ---
ambulated to bed 12 with steady gait
[2020-05-14] MEDS ORDERED: NACL 0.9% 1,000 ML IV ONE (18:35)
[2020-05-14 18:49] LABS: BASOPHILS # (AUTO) 0.1 K/uL (0.00-0.22); BASOPHILS % (AUTO) 0.9 % (0.0-2.0); EOSINOPHILS # (AUTO) 0.2 K/uL (0-0.4); EOSINOPHILS % (AUTO) 2.8 % (0.0-4.0); HEMATOCRIT 39.6 % (36-48); HEMOGLOBIN 12.7 g/dL (12.0-16.0); LYMPHOCYTES # (AUTO) 2.6 K/uL (2.5-16.5); LYMPHOCYTES % (AUTO) 29.5 % (20.5-51.1); MEAN CORPUSCULAR HEMOGLOBIN 27 pg (27-31); MEAN CORPUSCULAR HGB CONC 32 g/dL (33-37); MEAN CORPUSCULAR VOLUME 83.5 fL (80-94); MONOCYTES # (AUTO) 0.7 K/uL (0.8-1.0); MONOCYTES % (AUTO) 7.7 % (1.7-9.3); NEUTROPHILS # (AUTO) 5.3 K/uL (1.8-7.7); NEUTROPHILS % (AUTO) 59.1 % (42.2-75.2); PLATELET COUNT (AUTO) 345 K/uL (140-450); RED BLOOD CELL COUNT(AUTO) 4.75 MIL/uL (4.20-5.40); RED CELL DISTRIBUTION WIDTH 13.6 % (11.6-13.7); WHITE BLOOD COUNT (AUTO) 8.9 K/uL (4.8-10.8)
--- NOTE | 2020-05-14 19:01 | NUR ---
REPORT GAVE TO MINGO CARRINGTON. TRANSFER OF CARE AT THIS TIME.
--- NOTE | 2020-05-14 19:01 | NUR ---
RECEIVED REPORT FROM MINGO VANEGAS FOR CONTINUITY OF CARE.
--- NOTE | 2020-05-14 19:03 | NUR ---
PT RESTING IN BED , LOCKED AND LOWEST POSITION, HOB ELEVATED, SIDE RAIL X 2 FOR PT SAFETY , RR EVEN AND UNLABORED, SAO2 100%, VSS.
[2020-05-14 19:05] LABS: ALBUMIN 3.5 g/dL (3.4-5.0); CARBON DIOXIDE 25.3 mmol/L (21-32); CREATININE 0.9 mg/dL (0.6-1.3); POTASSIUM 4.3 mmol/L (3.5-5.1); TOTAL BILIRUBIN 0.3 mg/dL (0.0-1.0)
--- NOTE | 2020-05-14 19:48 | NUR ---
PT NS BOLUS COMPLETED , ACCUCHECK 238 , DR. CERRATO MADE AWARE.
--- NOTE | 2020-05-14 20:20 | NUR ---
IV removed, catheter intact and site benign. Applied folded 4x4 gauze and tape to stop bleeding.
[2020-05-14 20:25] VITALS: BP 125/82
--- NOTE | 2020-05-14 20:25 | NUR ---
Patient discharged with v/s stable. Written and verbal after care instructions given and explained. Patient verbalized understanding. Ambulatory with steady gait. All questions addressed prior to discharge. Advised to follow up with PMD.
== END 2020-05-14 20:25 | disposition home or self-care (01) ==
LOC: MED 18:11
DX: E11.65 Type 2 diabetes mellitus with hyperglycemia (principal); J45.909 Unspecified asthma, uncomplicated; I10 Essential (primary) hypertension; Z79.899 Other long term (current) drug therapy
CPT/HCPCS: 36415; 80053; 81002; 81025; 82948; 85025; 96360; 99283; J7030

== ENCOUNTER 2020-07-23 16:18 | Emergency (ER) | payer OTHER, SELFPAY ==
[~2020-07-23] VITALS: Ht 167.6 cm; Wt 68.0 kg
[2020-07-23 16:31] VITALS: BP 134/89
[2020-07-23 18:10] VITALS: BP 134/89
== END 2020-07-23 19:12 | disposition home or self-care (01) ==
LOC: MED 16:18
DX: J06.9 Acute upper respiratory infection, unspecified (principal); E11.9 Type 2 diabetes mellitus without complications; I10 Essential (primary) hypertension; J45.909 Unspecified asthma, uncomplicated; Z79.899 Other long term (current) drug therapy
CPT/HCPCS: 99283

== ENCOUNTER 2020-09-30 16:19 | Emergency (ER) | payer OTHER, SELFPAY ==
[~2020-09-30] VITALS: Ht 167.6 cm; Wt 69.4 kg
[2020-09-30 16:29] VITALS: BP 97/61
--- NOTE | 2020-09-30 16:33 | NUR ---
59YO F BIB SELF C/O SORE THROAT, RUNNY NOSE X 1 DAY. PATIENT COVID + IN DECEMBER. IN ED, VSS. NOTED ENLARGEMENT OF BILATERAL TONSILS. PATIENT WAITING TO BE SEEN IN TENT. ERMD MADE AWARE OF PT STATUS. PMH: DM, ASTHMA MEDS: METFORMIN, ASPIRIN, ALBUTEROL NKA
[2020-09-30 17:01] VITALS: BP 97/61
--- NOTE | 2020-09-30 17:02 | NUR ---
Patient discharged with v/s stable. Written and verbal after care instructions given and explained. Patient alert, oriented and verbalized understanding of instructions. Ambulatory with steady gait. All questions addressed prior to discharge. ID band removed. Patient advised to follow up with PMD. Rx of LORATADINE, ROBITUSSIN, ZADITOR given. Patient educated on indication of medication including possible reaction and side effects. Opportunity to ask questions provided and answered.
== END 2020-09-30 17:02 | disposition home or self-care (01) ==
LOC: MED 16:19
DX: J30.2 Other seasonal allergic rhinitis (principal); Z20.828 Contact with and (suspected) exposure to other viral communicable diseases; J45.909 Unspecified asthma, uncomplicated; E11.9 Type 2 diabetes mellitus without complications; I10 Essential (primary) hypertension; Z79.899 Other long term (current) drug therapy
CPT/HCPCS: 99283; U0003

== ENCOUNTER 2021-01-29 15:38 | Emergency (ER) | payer OTHER, SELFPAY ==
[~2021-01-29] VITALS: Ht 167.6 cm; Wt 73.5 kg
[2021-01-29 15:47] VITALS: BP 121/84
--- NOTE | 2021-01-29 15:48 | NUR ---
Patient ambulated with steady gait to bed 7.
--- NOTE | 2021-01-29 15:54 | NUR ---
60 Y/O FEMALE C/O VAGINAL ITCHING THAT STARTED LAST NIGHT. DENIES DYSURIA, HEMATURIA, DISCHARGE, PAIN, AND ODOR. PT DENIES ANY CHANGES IN SOAPS OR LOTIONS. PT DENIES SEXUAL ACTIVITY. PT STATES SHE HAD A PAPSMEAR LAST WEEK THAT WAS NORMAL. PT A/O X4 WITH EVEN AND UNLABORED RESPIRATIONS. HX DM, ASTHMA NKDA
--- NOTE | 2021-01-29 15:55 | NUR ---
RADHA WILKES AT BEDSIDE FOR EVALUATION
--- NOTE | 2021-01-29 16:04 | NUR ---
Female Director Epidemiology accompanied female patient for Pelvic Exam.
[2021-01-29] MEDS ORDERED: HYD1C TP (16:14)
[2021-01-29] MEDS ORDERED: CEPH-588 PO (16:14)
--- NOTE | 2021-01-29 16:30 | NUR ---
Patient discharged with v/s stable. Written and verbal after care instructions OF VAGINITIS AND UTI given and explained. Patient alert, oriented and verbalized understanding of instructions. Ambulatory with steady gait. All questions addressed prior to discharge. ID band removed. Patient advised to follow up with PMD. Rx of CEPHALEXIN AND HYDROCORTISONE CREAM given. Patient educated on indication of medication including possible reaction and side effects. Opportunity to ask questions provided and answered.
[2021-01-29 16:35] VITALS: BP 121/84
== END 2021-01-29 16:30 | disposition home or self-care (01) ==
LOC: MED 15:38
DX: N76.0 Acute vaginitis (principal); N39.0 Urinary tract infection, site not specified; J45.909 Unspecified asthma, uncomplicated; E11.9 Type 2 diabetes mellitus without complications; I10 Essential (primary) hypertension; Z79.899 Other long term (current) drug therapy
CPT/HCPCS: 81002; 99283

== ENCOUNTER 2021-04-08 12:23 | Emergency (ER) | payer OTHER, SELFPAY ==
[~2021-04-08] VITALS: Ht 167.6 cm; Wt 70.3 kg
[~2021-04-08 12:23] MED LIST changes: +CEPH-588 PO; +HYD1C TP
[2021-04-08 12:40] VITALS: BP 109/77
--- NOTE | 2021-04-08 12:46 | NUR ---
Pt ambulated to restroom to provide urine sample
[2021-04-08] MEDS ORDERED: KETOROLAC 30 MG/ML VIAL IVP ONE (13:00)
[2021-04-08] MEDS ORDERED: NACL 0.9% 1,000 ML IV ONE (13:00)
[2021-04-08] MEDS ORDERED: ONDANSETRON 4 MG/2 ML VIAL IVP ONE (13:00)
--- NOTE | 2021-04-08 13:22 | NUR ---
60 y/o female c/o dizziness, generalized weakness x1day. Pt states +n/v x2 episodes of emesis prior to arrival. Pt states she took her blood sugar this morning and was in 400s after 15units of insulin. Denies fever/chills. PMH: DM, Asthma NKA
[2021-04-08] MEDS ORDERED: INSULIN REGULAR, HUMAN 100 UNIT/ML VIAL SUBQ ONE (14:35)
[2021-04-08] MEDS ORDERED: ALUMINUM HYD/MAG/SIMETHICONE 30 ML UDC PO ONE (14:35)
[2021-04-08] MEDS ORDERED: FAMOTIDINE 20 MG/2 ML VIAL IVP ONE (14:35)
[2021-04-08] MEDS ORDERED: cephALEXin 500 MG CAP PO ONE (14:35)
--- NOTE | 2021-04-08 14:37 | NUR ---
Pt HOB lowered for comfort, visible equal rise and fall of chest, VSS, will continue to monitor.
[2021-04-08 16:03] LABS: ANION GAP 14.8 (8-16); CARBON DIOXIDE 24.3 mmol/L (21-32); POTASSIUM 4.1 mmol/L (3.5-5.1)
--- NOTE | 2021-04-08 16:37 | NUR ---
PT CURRENTLY RESTING IN BED. BED IN LOWEST POSITION. SIDERAIL X1 UP. PT PROVIDED WITH CRACKERS. VITAL SIGNS STABLE. WILL CONTINUE TO MONITOR
[2021-04-08] MEDS ORDERED: CEPH-588 PO (17:10)
[2021-04-08] MEDS ORDERED: ONDA-24 SL (17:12)
[2021-04-08 17:22] VITALS: BP 131/56
--- NOTE | 2021-04-08 17:23 | NUR ---
Patient discharged with v/s stable. Written and verbal after care instructions given and explained. Patient alert, oriented and verbalized understanding of instructions. Ambulatory with steady gait. All questions addressed prior to discharge. ID band removed. Patient advised to follow up with PMD. Rx of CEPHALEXIN 500 MG PO QID FOR 7 DAYS given. Patient educated on indication of medication including possible reaction and side effects. Opportunity to ask questions provided and answered.
== END 2021-04-08 17:23 | disposition home or self-care (01) ==
LOC: MED 12:23
DX: N39.0 Urinary tract infection, site not specified (principal); E11.65 Type 2 diabetes mellitus with hyperglycemia; R11.2 Nausea with vomiting, unspecified; J45.909 Unspecified asthma, uncomplicated
CPT/HCPCS: 36415; 80048; 81002; 81025; 96361; 96372; 96374; 96375; 99285; J1815; J1885; J2405; J3490; J7030

== ENCOUNTER 2021-05-28 15:58 | Emergency (ER) | payer OTHER, SELFPAY ==
[~2021-05-28] VITALS: Ht 167.6 cm; Wt 71.7 kg
[~2021-05-28 15:58] MED LIST changes: -CEPH250C16 PO; +ONDA-24 SL
[2021-05-28 16:13] VITALS: BP 123/78
--- NOTE | 2021-05-28 16:34 | NUR ---
60 YO F C/O LEFT SHOULDER PAIN AND BILATERAL KNEE PAIN X 3 MONTHS. PT REPORTS SLIPPING IN THE SHOWER 3 MONTHS AGO WHEN PAIN STARTED. PT STATED PAIN IS CONSTANTLY THERE AND IS "PRESSURE" LIKE. PT STATED SHE IS ABLE TO AMBULATE BUT ALWAYS FEELS PAIN IN HER KNEES THAT RADIATES DOWN TO HER FEET. PT ALSO STATED PAIN IN HER SHOULDER IS CONSTANT. PT IS ABLE TO MOVE HER SHOULDER, BUT UNABLE TO MOVE HER SHOULDER BACK WITHOUT PAIN PMH: ASTHMA, DM MEDS: METFORMIN, ASPIRIN, VENTOLIN PRN NKA
--- NOTE | 2021-05-28 16:53 | NUR ---
xray bedside with pt
[2021-05-28] MEDS ORDERED: ACETAMINOPHEN 325 MG TAB PO ONE (17:20)
[2021-05-28] MEDS ORDERED: NAPR-54 PO (17:53)
[2021-05-28] MEDS ORDERED: CYCL-654 PO (17:53)
[2021-05-28 18:08] VITALS: BP 123/74
--- NOTE | 2021-05-28 18:09 | NUR ---
Patient discharged with v/s stable. Written and verbal after care instructions given and explained. Patient alert, oriented and verbalized understanding of instructions. Ambulatory with steady gait. All questions addressed prior to discharge. ID band removed. Patient advised to follow up with PMD. Rx of CYCLOBENZAPRINE AND NAPROXEN given. Patient educated on indication of medication including possible reaction and side effects. Opportunity to ask questions provided and answered.
== END 2021-05-28 18:09 | disposition home or self-care (01) ==
LOC: MED 15:58
DX: M25.512 Pain in left shoulder (principal); E11.40 Type 2 diabetes mellitus with diabetic neuropathy, unspecified; I10 Essential (primary) hypertension; J45.909 Unspecified asthma, uncomplicated
CPT/HCPCS: 73030; 99283; Q0092

== ENCOUNTER 2021-08-06 15:47 | Emergency (ER) | payer OTHER ==
[~2021-08-06] VITALS: Ht 167.6 cm; Wt 74.4 kg
[~2021-08-06 15:47] MED LIST changes: -ACET-8386 PO; -CEPH-588 PO; +CYCL-654 PO; +NAPR-54 PO; +ONDA-188 SL; -ONDA-24 SL
--- NOTE | 2021-08-06 15:49 | NUR ---
PT NAME WAS CALLED IN LOBBY, NO ANSWER AT THIS TIME
[2021-08-06 15:58] VITALS: BP 126/75
--- NOTE | 2021-08-06 15:58 | NUR ---
PT WAS TRIAGED AND ASKED TO WAIT IN LOBBY AT THIS TIME
[2021-08-06] MEDS ORDERED: NAPR-54 PO (16:56)
[2021-08-06] MEDS ORDERED: PROM118S6 PO (16:56)
--- NOTE | 2021-08-06 17:08 | NUR ---
Patient discharged with v/s stable. Written and verbal after care instructions given and explained. Patient alert, oriented and verbalized understanding of instructions. Ambulatory with steady gait. All questions addressed prior to discharge. ID band removed. Patient advised to follow up with PMD. Rx of NAPROXEN, PROMETHAZINE given. Patient educated on indication of medication including possible reaction and side effects. Opportunity to ask questions provided and answered.
--- NOTE | 2021-08-06 17:08 | NUR ---
PT WAS SWABBED FOR COVID NOVEL
[2021-08-06 17:10] VITALS: BP 126/75
== END 2021-08-06 17:10 | disposition home or self-care (01) ==
LOC: MED 15:47
DX: J06.9 Acute upper respiratory infection, unspecified (principal); Z20.822 Contact with and (suspected) exposure to COVID-19; J45.909 Unspecified asthma, uncomplicated; E11.9 Type 2 diabetes mellitus without complications; I10 Essential (primary) hypertension; Z79.899 Other long term (current) drug therapy
CPT/HCPCS: 99283; U0003

== ENCOUNTER 2021-11-29 21:55 | Emergency (ER) | payer OTHER ==
[~2021-11-29] VITALS: Ht 167.6 cm; Wt 76.2 kg
[~2021-11-29 21:55] MED LIST changes: +PROM118S6 PO
[2021-11-29 22:08] VITALS: BP 130/78
--- NOTE | 2021-11-29 22:21 | NUR ---
PT TAKEN TO BED 5
--- NOTE | 2021-11-29 22:22 | NUR ---
Patient BIB by family from home. C/O allergy x 1 week. Patient reported, had seasonal allergy for a week, used OTC -no relief. A/O,X4, congestion, itchy bilateral eyes, no SOB.
--- NOTE | 2021-11-29 22:56 | NUR ---
Dr. Peoples examining patient.
[2021-11-29] MEDS ORDERED: DIPH25TA53 PO (23:05)
[2021-11-29] MEDS ORDERED: PRED20TA5 PO (23:05)
[2021-11-29] MEDS: predniSONE 20 MG TAB PO ONE (23:13)
[2021-11-29 23:30] VITALS: BP 130/78
--- NOTE | 2021-11-29 23:30 | NUR ---
Patient discharged with v/s stable. Written and verbal after care instructions given and explained. Patient alert, oriented and verbalized understanding of instructions. Ambulatory with steady gait. All questions addressed prior to discharge. ID band removed. Patient advised to follow up with PMD. Rx of Prednisone and Benadryl given. Patient educated on indication of medication including possible reaction and side effects. Opportunity to ask questions provided and answered.
== END 2021-11-29 23:30 | disposition home or self-care (01) ==
LOC: MED 21:55
DX: L50.9 Urticaria, unspecified (principal); J30.81 Allergic rhinitis due to animal (cat) (dog) hair and dander; J45.909 Unspecified asthma, uncomplicated; E11.9 Type 2 diabetes mellitus without complications; I10 Essential (primary) hypertension; Z79.899 Other long term (current) drug therapy
CPT/HCPCS: 99283; J7512

== ENCOUNTER 2022-04-07 19:04 | Emergency (ER) | payer OTHER ==
[~2022-04-07] VITALS: Ht 157.5 cm; Wt 73.5 kg
[~2022-04-07 19:04] MED LIST changes: +DIPH25TA53 PO; +PRED20TA5 PO
[2022-04-07 19:25] VITALS: BP 118/79
--- NOTE | 2022-04-07 20:01 | NUR ---
Dr. Reece examining patient.
[2022-04-07] MEDS ORDERED: KETOROLAC 30 MG/ML VIAL IM ONE (20:20)
--- NOTE | 2022-04-07 20:35 | NUR ---
Patient taken to radiology dept via wheel chair.
--- NOTE | 2022-04-07 22:18 | NUR ---
Dr. Reece explained results and treatment plans.
[2022-04-07] MEDS ORDERED: METH-1681 PO (22:22)
[2022-04-07 22:47] VITALS: BP 118/79
--- NOTE | 2022-04-07 22:48 | NUR ---
Patient discharged with v/s stable. Written and verbal after care instructions given and explained. Patient alert, oriented and verbalized understanding of instructions. Ambulatory with steady gait. All questions addressed prior to discharge. ID band removed. Patient advised to follow up with PMD. Rx of ROBAXIN given. Patient educated on indication of medication including possible reaction and side effects. Opportunity to ask questions provided and answered.
== END 2022-04-07 22:46 | disposition home or self-care (01) ==
LOC: MED 19:04
DX: M19.011 Primary osteoarthritis, right shoulder (principal); J45.909 Unspecified asthma, uncomplicated; I10 Essential (primary) hypertension; E11.9 Type 2 diabetes mellitus without complications; Z79.4 Long term (current) use of insulin; Z79.899 Other long term (current) drug therapy
CPT/HCPCS: 73030; 96372; 99283; J1885

== ENCOUNTER 2022-04-15 20:38 | Emergency (ER) | payer OTHER ==
[~2022-04-15] VITALS: Ht 167.6 cm; Wt 73.5 kg
[~2022-04-15 20:38] MED LIST changes: +METH-1681 PO
[2022-04-15 20:47] VITALS: BP 159/90
--- NOTE | 2022-04-15 20:48 | NUR ---
TO BED AMBULATORY
--- NOTE | 2022-04-15 20:54 | NUR ---
ER MD AT BEDSIDE EXAMINING PT
--- NOTE | 2022-04-15 20:58 | NUR ---
61 Y/O FEMALE BIBS FROM HOME, C/O REDNESS AND SWELLING TO RIGHT EYE. PT STATES THAT 30 MINUTES AGO SHE NOTICEED THAT SHE HAD SOME SLIGH TITCHING AND DC FORM HER EYE. NO BLURRED VISION OR PAIN. PT HAS UNLABORED BREATHING, NO SWOLLEN TONGUE. PT IS AMBULATORY W/O ASSISTANCE. NO TRAUMA NOTED. HX: ASTHMA, DM NKA
[2022-04-15] MEDS ORDERED: DIPH25TA53 PO (21:05)
[2022-04-15] MEDS ORDERED: PRED20TA5 PO (21:05)
[2022-04-15] MEDS ORDERED: diphenhydrAMINE 50 MG CAP PO ONE (21:10)
[2022-04-15 21:16] VITALS: BP 150/89
--- NOTE | 2022-04-15 21:18 | NUR ---
Patient discharged with v/s stable. Written and verbal after care instructions given and explained. Patient alert, oriented and verbalized understanding of instructions. Ambulatory with steady gait. All questions addressed prior to discharge. ID band removed. Patient advised to follow up with PMD. Rx of BENADRYL AND DELTASONE given. Patient educated on indication of medication including possible reaction and side effects. Opportunity to ask questions provided and answered. VSS, A/OX4, UNLABORED BREATHING, AMBLULATORY, AND CALM DEMEANOR.
== END 2022-04-15 21:18 | disposition home or self-care (01) ==
LOC: MED 20:38
DX: H10.11 Acute atopic conjunctivitis, right eye (principal); J45.909 Unspecified asthma, uncomplicated; E11.9 Type 2 diabetes mellitus without complications; Z79.4 Long term (current) use of insulin; Z79.899 Other long term (current) drug therapy
CPT/HCPCS: 99283; Q0163

== ENCOUNTER 2022-09-15 08:03 | Emergency (ER) | payer OTHER ==
[~2022-09-15] VITALS: Ht 160 cm; Wt 71.7 kg
[2022-09-15 08:07] VITALS: BP 128/85
--- NOTE | 2022-09-15 08:15 | NUR ---
61 y/o female, c/o cough, sore throat, runny nose, congestion since yesterday. denies anyone sick at home with same s/s. denies pain. states she wants a refill on her inhaler as well. a&ox4, ambulates with steady gait, occitan speaking. pmh: asthma nka med: cough and cold medicine
--- NOTE | 2022-09-15 08:15 | NUR ---
swabbed for covid and flu at this time
--- NOTE | 2022-09-15 10:20 | NUR ---
PT AMBULATED TO BED 4
--- NOTE | 2022-09-15 10:29 | NUR ---
PATIENT PRESENTS TO ED WITH COLD SYMPTOMS . DENIES N/V/D; SKIN IS PINK/WARM/DRY; AAOX4 WITH EVEN AND STEADY GAIT; LUNGS CLEAR BL; HR EVEN AND REGULAR; VSS; PATIENT POSITIONED FOR COMFORT; HOB ELEVATED; BEDRAILS UP X2; BED DOWN. ER MD MADE AWARE OF PT STATUS.
[2022-09-15] MEDS ORDERED: ACET-10509 PO (10:32)
[2022-09-15] MEDS ORDERED: ALBU0.0912 INH (10:32)
[2022-09-15 11:40] VITALS: BP 139/89
--- NOTE | 2022-09-15 11:40 | NUR ---
Patient discharged with v/s stable. Written and verbal after care instructions given and explained. Patient alert, oriented and verbalized understanding of instructions. Ambulatory with steady gait. All questions addressed prior to discharge. ID band removed. Patient advised to follow up with PMD. Rx of TYLENOL AND PROVENTIL given. Patient educated on indication of medication including possible reaction and side effects. Opportunity to ask questions provided and answered.
== END 2022-09-15 11:40 | disposition home or self-care (01) ==
LOC: MED 08:03
DX: J06.9 Acute upper respiratory infection, unspecified (principal); Z20.822 Contact with and (suspected) exposure to COVID-19; J45.909 Unspecified asthma, uncomplicated; I10 Essential (primary) hypertension; E11.9 Type 2 diabetes mellitus without complications; Z79.4 Long term (current) use of insulin; Z79.899 Other long term (current) drug therapy
CPT/HCPCS: 99283

== ENCOUNTER 2022-09-26 18:09 | Emergency (ER) | payer OTHER ==
[~2022-09-26] VITALS: Ht 157.5 cm; Wt 73.0 kg
[~2022-09-26 18:09] MED LIST changes: +ACET-10509 PO; +ALBU0.0912 INH
[2022-09-26 18:29] VITALS: BP 136/72
--- NOTE | 2022-09-26 18:42 | NUR ---
here for pain and bloodshot left eye since yesterday, worse today, no vision changes
[2022-09-26] MEDS ORDERED: TETRACAINE HCL/PF 0.5% OPTH 4 ML BTL OP ONE (19:20)
[2022-09-26] MEDS ORDERED: FLUORESCEIN OPTH STRIP 1 MG OP ONE (19:20)
[2022-09-26] MEDS ORDERED: TOMOMETER 1 DEV DEV MC ONE (19:28)
--- NOTE | 2022-09-26 19:40 | NUR ---
SEEN AND EXAMINED BY HAILEY
[2022-09-26] MEDS ORDERED: ACET-2619 PO (19:59)
[2022-09-26 20:05] VITALS: BP 136/72
== END 2022-09-26 20:05 | disposition home or self-care (01) ==
LOC: MED 18:09
DX: B30.3 Acute epidemic hemorrhagic conjunctivitis (enteroviral) (principal); J45.909 Unspecified asthma, uncomplicated; I10 Essential (primary) hypertension; E11.9 Type 2 diabetes mellitus without complications; Z79.4 Long term (current) use of insulin; Z79.899 Other long term (current) drug therapy
CPT/HCPCS: 99283

== ENCOUNTER 2023-03-20 07:01 | Emergency (ER) | payer OTHER ==
[~2023-03-20] VITALS: Ht 167.6 cm; Wt 67.6 kg
[~2023-03-20 07:01] MED LIST changes: +ACET-2619 PO
[2023-03-20 07:14] VITALS: BP 168/95; PULSE 77; RESP 17; TEMP 98.1; O2SAT 99
--- NOTE | 2023-03-20 07:14 | NUR ---
to bed ambulatory
[2023-03-20] MEDS ORDERED: MECLIZINE 25 MG TAB PO ONE (07:50)
--- NOTE | 2023-03-20 07:57 | NUR ---
PT WENT TO HAVE CT SCAN
[2023-03-20 08:01] LABS: BASOPHILS # (AUTO) 0.1 K/uL (0.00-0.22); BASOPHILS % (AUTO) 0.7 % (0.0-2.0); EOSINOPHILS # (AUTO) 0.3 K/uL (0-0.4); EOSINOPHILS % (AUTO) 3.6 % (0.0-4.0); HEMATOCRIT 40.3 % (36-48); HEMOGLOBIN 13.1 g/dL (12.0-16.0); MEAN CORPUSCULAR HEMOGLOBIN 27 pg (27-31); MEAN CORPUSCULAR HGB CONC 33 g/dL (33-37); MEAN CORPUSCULAR VOLUME 81.4 fL (80-94); MONOCYTES # (AUTO) 0.6 K/uL (0.8-1.0); MONOCYTES % (AUTO) 7.5 % (1.7-9.3); NEUTROPHILS % (AUTO) 50.2 % (42.2-75.2); PLATELET COUNT (AUTO) 264 K/uL (140-450); RED BLOOD CELL COUNT(AUTO) 4.95 MIL/uL (4.20-5.40); RED CELL DISTRIBUTION WIDTH 13.6 % (11.6-13.7); WHITE BLOOD COUNT (AUTO) 7.9 K/uL (4.8-10.8)
[2023-03-20 08:03] LABS: APPEARANCE,URINE CLEAR (CLEAR); BILIRUBIN,URINE NEGATIVE (NEGATIVE); BLOOD, URINE NEGATIVE (NEGATIVE); COLOR,URINE YELLOW (YELLOW); LEUKOCYTE ESTERASE ,URINE 1+ (NEGATIVE); NITRITE, URINE NEGATIVE (NEGATIVE); UGLUCOSE NEGATIVE (NEGATIVE)
[2023-03-20 08:20] LABS: ALBUMIN 3.4 g/dL (3.4-5.0); ANION GAP 11.4 (8-16); ASPARTATE AMINOTRANSFERASE 13 U/L (15-37); CARBON DIOXIDE 27.3 mmol/L (21-32); CHLORIDE 105 mmol/L (98-107); CREATININE 0.7 mg/dL (0.6-1.3); GFR ARICAN-AMERICAN 109 mL/min (>90); GLUCOSE 222 mg/dL (74-106); POTASSIUM 4.7 mmol/L (3.5-5.1); SODIUM SERUM 139 mmol/L (136-145); TOTAL BILIRUBIN 0.8 mg/dL (0.0-1.0); UREA NITROGEN, BLOOD 10 mg/dL (7-18)
[2023-03-20 08:25] LABS: RBC,URINE 0-5 /HPF (0-5)
--- NOTE | 2023-03-20 08:29 | NUR ---
PATIENT PRESENTS TO ED WITH WITH 3 SPELLS OF DIZZINESS IN 1 HOUR. PT STATES SHES HAVING MILD WEAKNES.PT STATES SHE HAS NAUSEA BUT UNABLE TO VOMIT. PT STATES THE NIGHT BEFORE SHE HAD DIARREA, SKIN IS PINK/WARM/DRY; AAOX4 AMBULATE WITH ASSIST; LUNGS CLEAR BL; HR EVEN AND REGULAR; PT DENIES ANY FEVER, CP, SOB, OR COUGH AT THIS TIME; PATIENT STATES PAIN OF 0/10 AT THIS TIME; VSS; PATIENT POSITIONED FOR COMFORT; HOB ELEVATED; BEDRAILS UP X2; BED DOWN. ER MD MADE AWARE OF PT STATUS. PMHX; STROKE- 3 YEARS AGO RIGHT SIDE DEFICIT DM ASTHMA
[2023-03-20 08:35] VITALS: O2SAT 100
--- NOTE | 2023-03-20 08:44 | NUR ---
PT HAS BEEN MEDICATED PER PROVIDERS ORDERS. CALL LIGHT WITH IN REACH.
--- NOTE | 2023-03-20 09:40 | NUR ---
PT STATED THE MEDICATION UPSET HER STOMACH WAS GIVEN JUICE AND CRACKERS.
[2023-03-20] MEDS ORDERED: MECL-303 PO (09:41)
[2023-03-20] MEDS ORDERED: CEPH-588 PO (09:44)
--- NOTE | 2023-03-20 09:55 | NUR ---
Patient discharged with v/s stable. Written and verbal after care instructions given and explained. Patient alert, oriented and verbalized understanding of instructions. Ambulatory with steady gait. All questions addressed prior to discharge. ID band removed. Patient advised to follow up with PMD. Rx of ANTIVERT, KEFLEX given. Patient educated on indication of medication including possible reaction and side effects. Opportunity to ask questions provided and answered.
[2023-03-20 10:00] VITALS: BP 134/74; PULSE 72; RESP 20; TEMP 97.3; O2SAT 98
== END 2023-03-20 09:55 | disposition home or self-care (01) ==
LOC: MED 07:01
DX: N39.0 Urinary tract infection, site not specified (principal); R42 Dizziness and giddiness; E11.65 Type 2 diabetes mellitus with hyperglycemia; I10 Essential (primary) hypertension; J45.909 Unspecified asthma, uncomplicated; Z79.4 Long term (current) use of insulin; Z79.899 Other long term (current) drug therapy
CPT/HCPCS: 36415; 70450; 80053; 81001; 84484; 85025; 87086; 93005; 99284; J8597

== ENCOUNTER 2023-07-28 16:28 | Emergency (ER) | payer OTHER ==
[~2023-07-28] VITALS: Ht 167.6 cm; Wt 68.9 kg
[~2023-07-28 16:28] MED LIST changes: +CEPH-588 PO; +MECL-303 PO
[2023-07-28 16:53] VITALS: BP 115/71; PULSE 95; RESP 16; TEMP 97.8; O2SAT 99
[2023-07-28] MEDS ORDERED: NACL 0.9% 1,000 ML IV ONE (17:05)
[2023-07-28 17:37] VITALS: O2SAT 99
[2023-07-28 17:49] LABS: BASOPHILS # (AUTO) 0.1 K/uL (0.00-0.22); BASOPHILS % (AUTO) 0.7 % (0.0-2.0); EOSINOPHILS # (AUTO) 0.3 K/uL (0-0.4); EOSINOPHILS % (AUTO) 4.1 % (0.0-4.0); HEMATOCRIT 39.7 % (36-48); HEMOGLOBIN 12.9 g/dL (12.0-16.0); LYMPHOCYTES # (AUTO) 3.3 K/uL (2.5-16.5); LYMPHOCYTES % (AUTO) 42.7 % (20.5-51.1); MEAN CORPUSCULAR HEMOGLOBIN 27 pg (27-31); MEAN CORPUSCULAR HGB CONC 32 g/dL (33-37); MEAN CORPUSCULAR VOLUME 81.8 fL (80-94); MONOCYTES # (AUTO) 0.6 K/uL (0.8-1.0); NEUTROPHILS # (AUTO) 3.4 K/uL (1.8-7.7); NEUTROPHILS % (AUTO) 44.5 % (42.2-75.2); PLATELET COUNT (AUTO) 266 K/uL (140-450); RED BLOOD CELL COUNT(AUTO) 4.86 MIL/uL (4.20-5.40); RED CELL DISTRIBUTION WIDTH 13.7 % (11.6-13.7); WHITE BLOOD COUNT (AUTO) 7.7 K/uL (4.8-10.8)
[2023-07-28 17:56] LABS: ANION GAP 12.8 (8-16); CARBON DIOXIDE 25.4 mmol/L (21-32); CREATININE 0.9 mg/dL (0.6-1.3); POTASSIUM 4.2 mmol/L (3.5-5.1)
[2023-07-28 18:36] VITALS: BP 121/71; PULSE 88; RESP 16; TEMP 97.8; O2SAT 99
== END 2023-07-28 18:36 | disposition home or self-care (01) ==
LOC: MED 16:28
DX: E11.65 Type 2 diabetes mellitus with hyperglycemia (principal); J45.909 Unspecified asthma, uncomplicated; I10 Essential (primary) hypertension; Z86.73 Personal history of transient ischemic attack (TIA), and cerebral infarction without residual deficits; Z79.899 Other long term (current) drug therapy; Z79.2 Long term (current) use of antibiotics; Z79.1 Long term (current) use of non-steroidal anti-inflammatories (NSAID)
CPT/HCPCS: 36415; 80048; 82009; 82948; 85025; 96360; 99283; J7030

== ENCOUNTER 2024-03-14 08:00 | Emergency (ER) | payer OTHER ==
[~2024-03-14] VITALS: Ht 167.6 cm; Wt 67.8 kg
[~2024-03-14 08:00] MED LIST changes: +NAPR-337 PO; -NAPR-54 PO
[2024-03-14 08:17] VITALS: BP 120/76; PULSE 101; RESP 18; TEMP 97.8; O2SAT 99
[2024-03-14 08:22] VITALS: O2SAT 99
[2024-03-14] MEDS: NACL 0.9% 1,000 ML IV ONE (08:57)
[2024-03-14] MEDS: METOCLOPRAMIDE 10 MG/2 ML INJ VIAL IVP ONE (09:05)
[2024-03-14] MEDS: KETOROLAC 30 MG/ML VIAL IVP ONE (09:05)
[2024-03-14 09:38] LABS: ALBUMIN 3.6 g/dL (3.4-5.0); ANION GAP 13.1 (8-16); BILIRUBIN,DIRECT 0.2 mg/dL (0.0-0.3); CALCIUM 9.2 mg/dL (8.5-10.1); CARBON DIOXIDE 27.7 mmol/L (21-32); CREATININE 0.8 mg/dL (0.6-1.3); POTASSIUM 3.8 mmol/L (3.5-5.1); TOTAL BILIRUBIN 1.1 mg/dL (0.0-1.0); TOTAL PROTEIN, SERUM 7.4 g/dL (6.4-8.2)
[2024-03-14 09:39] LABS: BILIRUBIN,URINE NEGATIVE (NEGATIVE); BLOOD, URINE NEGATIVE (NEGATIVE); COLOR,URINE YELLOW (YELLOW); LEUKOCYTE ESTERASE ,URINE 1+ (NEGATIVE); NITRITE, URINE NEGATIVE (NEGATIVE); PH,URINE 6.5 (5.0-9.0); PROTEIN,URINE NEGATIVE (NEGATIVE); UGLUCOSE 2+ (NEGATIVE)
[2024-03-14 09:41] LABS: BASOPHILS % (AUTO) 0.3 % (0.0-2.0); EOSINOPHILS # (AUTO) 0.1 K/uL (0-0.4); EOSINOPHILS % (AUTO) 0.6 % (0.0-4.0); HEMATOCRIT 42.7 % (36-48); HEMOGLOBIN 13.9 g/dL (12.0-16.0); LYMPHOCYTES # (AUTO) 1.7 K/uL (2.5-16.5); LYMPHOCYTES % (AUTO) 15.1 % (20.5-51.1); MEAN CORPUSCULAR HEMOGLOBIN 27 pg (27-31); MEAN CORPUSCULAR HGB CONC 33 g/dL (33-37); MEAN CORPUSCULAR VOLUME 82.5 fL (80-94); MONOCYTES # (AUTO) 0.7 K/uL (0.8-1.0); NEUTROPHILS # (AUTO) 8.8 K/uL (1.8-7.7); PLATELET COUNT (AUTO) 260 K/uL (140-450); RED BLOOD CELL COUNT(AUTO) 5.18 MIL/uL (4.20-5.40); RED CELL DISTRIBUTION WIDTH 13.1 % (11.6-13.7); WHITE BLOOD COUNT (AUTO) 11.3 K/uL (4.8-10.8)
[2024-03-14 09:51] LABS: BACTERIA,URINE OCCASSIONAL /HPF (None Seen); RBC,URINE 0-5 /HPF (0-5); SQUAMOUS EPITHELIAL CELL,UR 0-3 (FEW) /LPF (0-3 (FEW))
[2024-03-14 09:52] LABS: WBC,URINE 16-25 (MOD) /HPF (0-5)
[2024-03-14 09:53] LABS: APPEARANCE,URINE SLIGHTLY HAZY (CLEAR)
[2024-03-14] MEDS ORDERED: cefTRIAXone 1,000 MG VIAL ONE (10:22)
[2024-03-14] MEDS ORDERED: ONDA-188 PO (10:24)
[2024-03-14] MEDS ORDERED: CEPH-588 PO (10:24)
[2024-03-14 10:25] VITALS: O2SAT 99
[2024-03-14 10:51] VITALS: BP 121/71; PULSE 88; RESP 18; TEMP 98.3; O2SAT 99
== END 2024-03-14 11:01 | disposition home or self-care (01) ==
LOC: MED 08:00
DX: N39.0 Urinary tract infection, site not specified (principal); R51.9 Headache, unspecified; J02.9 Acute pharyngitis, unspecified; J45.909 Unspecified asthma, uncomplicated; E11.9 Type 2 diabetes mellitus without complications; I10 Essential (primary) hypertension; Z86.73 Personal history of transient ischemic attack (TIA), and cerebral infarction without residual deficits; Z79.1 Long term (current) use of non-steroidal anti-inflammatories (NSAID); Z79.2 Long term (current) use of antibiotics; Z79.899 Other long term (current) drug therapy
CPT/HCPCS: 36415; 70450; 80048; 80076; 81001; 82948; 83690; 85025; 87086; 96365; 96375; 99285; J0696; J1885; J2765; J7030

== ENCOUNTER 2024-04-17 23:55 | Emergency (ER) | payer OTHER ==
[~2024-04-17] VITALS: Ht 165.1 cm; Wt 63.5 kg
[~2024-04-17 23:55] MED LIST changes: +ONDA-188 PO
[2024-04-18 00:14] VITALS: BP 143/93; PULSE 77; RESP 18; TEMP 98; O2SAT 98
[2024-04-18] MEDS ORDERED: KETOROLAC 30 MG/ML VIAL ONE (01:37)
[2024-04-18] MEDS: KETOROLAC 30 MG/ML VIAL IM ONE (01:42)
[2024-04-18] MEDS ORDERED: LID5T TP (02:00)
[2024-04-18] MEDS ORDERED: ACET-10509 PO (02:00)
[2024-04-18] MEDS ORDERED: NAPR-337 PO (02:00)
== END 2024-04-18 02:15 | disposition home or self-care (01) ==
LOC: MED 23:55
DX: M75.21 Bicipital tendinitis, right shoulder (principal); G89.29 Other chronic pain; M25.511 Pain in right shoulder; J45.909 Unspecified asthma, uncomplicated; E11.9 Type 2 diabetes mellitus without complications; I10 Essential (primary) hypertension; Z79.1 Long term (current) use of non-steroidal anti-inflammatories (NSAID); Z79.899 Other long term (current) drug therapy
CPT/HCPCS: 96372; 99283; J1885